=== PATIENT | male | born 1975 | race Two or more races ===

== ENCOUNTER 2021-11-03 16:21 | Emergency (ER) | payer OTHER ==
[2021-11-03] MEDS ORDERED: CYCLOBENZAPRINE10 MG PO (19:27)
[2021-11-03] MEDS ORDERED: IBUPROFEN600 MG PO (19:27)
== END 2021-11-03 19:41 | disposition home or self-care (01) ==
LOC: ER1 16:21
DX: M51.86 Other intervertebral disc disorders, lumbar region (principal)
CPT/HCPCS: 72131; 96372; 99283; J1885; J2270